=== PATIENT | male | born 1955 | race Caucasian/White ===

== ENCOUNTER 2022-06-17 12:00 | Outpatient (CLI) | payer MEDICAID, OTHER | END 2022-06-17 12:01 | disposition home or self-care (01) | LOC: MADRAD 12:00 | PROVIDERS: ATTEND Family Medicine | DX: M16.12 Unilateral primary osteoarthritis, left hip (principal) ==

== ENCOUNTER 2023-01-03 11:01 | Outpatient (CLI) | payer OTHER | END 2023-01-03 11:02 | disposition home or self-care (01) | LOC: MADRAD 11:01 | PROVIDERS: ATTEND Family Medicine | DX: M25.551 Pain in right hip (principal); M16.11 Unilateral primary osteoarthritis, right hip ==

== ENCOUNTER 2023-02-13 17:04 | Emergency (ER) | payer MEDICARE, OTHER ==
[2023-02-13] MEDS ORDERED: HYDROmorphone 0.5 MG/0.5 ML SYRINGE ONE (18:49)
== END 2023-02-13 18:52 | disposition home or self-care (01) ==
LOC: MADERS 17:04
DX: M16.11 Unilateral primary osteoarthritis, right hip (principal); F17.210 Nicotine dependence, cigarettes, uncomplicated
CPT/HCPCS: 96372; 99283; J1170